=== PATIENT | female | born 1965 | race Caucasian/White ===

== ENCOUNTER 2019-08-25 12:05 | Emergency (ER) | payer OTHER, SELFPAY ==
[2019-08-25 12:13] VITALS: BP 120/78; PULSE 75; RESP 18; TEMP 36.6; O2SAT 100
--- NOTE | 2019-08-25 13:20 | PC.NURSE ---
LET applied to wound, guaze placed over wound and secured with tegaderm. Note immediate saturation of dressing, note squirting from wound. Tight pressure applied to pt's wrist lac. HOMER Cobos made aware. Guaze secured tightly with coban to wound. Pt continues to have CSMT distal to wound.
--- NOTE | 2019-08-25 13:53 | PC.NURSE ---
HOMER Cobos, at bedside to repair laceration
--- NOTE | 2019-08-25 14:00 | ED.WOUNDLAC ---
HPI - Wound/Laceration General Chief Complaint: Wound/Laceration <Alcon Hsu PA-C - Last Filed: 08/25/19 14:14> Stated Complaint: LACERATION <Alcon Hsu PA-C - Last Filed: 08/25/19 14:14> Time Seen by Provider: 08/25/19 12:39 <Alcon Hsu PA-C - Last Filed: 08/25/19 14:14> Source: patient <TERRY Presley Last Filed: 08/25/19 14:14> Mode of arrival: ambulatory <Alcon Hsu PA-C - Last Filed: 08/25/19 14:14> Limitations: no limitations <Alcon Hsu PA-C - Last Filed: 08/25/19 14:14> History of Present Illness HPI narrative: Patient is a 53-year-old female who presents to emergency department for evaluation of laceration to the left breast that occurred just prior 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 patient notes her tetanus to be up-to-date patient notes mild aching pain that becomes moderate with activity and movement patient denies other injuries or complaints <Alcon Hsu PA-C - Last Filed: 08/25/19 14:14> Related Data Home Medications: Home Medications Medication Instructions Recorded Confirmed No Home Medications 08/25/19 08/25/19 <Alcon Hsu PA-C - Last Filed: 08/25/19 14:14> Allergies/Adverse Reactions: Allergies Allergy/AdvReac Type Severity Reaction Status Date / Time cephalexin Allergy Unknown swelling, Verified 08/25/19 12:21 hives Penicillins Allergy Unknown swelling, Verified 08/25/19 12:21 hives <Alcon Hsu PA-C - Last Filed: 08/25/19 14:14> Review of Systems Review of Systems: All systems reviewed & are unremarkable except as noted in HPI and below <Alcon Hsu PA-C - Last Filed: 08/25/19 14:14> [facility] Social History Social History: Social History Gender identity (if verbalized by the patient): Female <TERRY Presley Last Filed: 08/25/19 14:14> Exam Narrative: Exam Narrative: GENERAL: Well-appearing, well-nourished, and in no acute distress. HEAD: Normocephalic, atraumatic. EYES: PERRLA and EOMI. ENT: Nares clear, no rhinorrhea or epistaxis. Mucous membranes moist. EXTREMITIES: Normal range of motion. No edema. 1 cm linear superficial laceration of the volar surface of the left wrist along the radial aspect SKIN: Warm, dry, no rash. NEURO: No focal deficits. Alert and oriented x3. Neurovascularly intact. Capillary refill less than 2 seconds PSYCH: Normal mood and affect. <Alcon Hsu PA-C - Last Filed: 08/25/19 14:14> Course Course Emergency Course: Patient in the room in no distress aware of case findings treatment plan and diagnosis agreeing to follow-up as directed <Alcon Hsu PA-C - Last Filed: 08/25/19 14:14> Vital Signs Vital signs: Vital Signs Temperature 97.8 F 08/25/19 12:13 Pulse Rate 75 08/25/19 12:13 Respiratory Rate 18 08/25/19 12:13 Blood Pressure 120/78 08/25/19 12:13 Pulse Oximetry 100 08/25/19 12:13 Temperature 97.8 F 08/25/19 12:13 Pulse Rate 78 08/25/19 14:25 Respiratory Rate 16 08/25/19 14:25 Blood Pressure 138/75 08/25/19 14:25 Pulse Oximetry 100 08/25/19 14:25 <Alcon Hsu PA-C - Last Filed: 08/25/19 14:14> Vital Signs Temperature 97.8 F 08/25/19 12:13 Pulse Rate 75 08/25/19 12:13 Respiratory Rate 18 08/25/19 12:13 Blood Pressure 120/78 08/25/19 12:13 Pulse Oximetry 100 08/25/19 12:13 Temperature 97.8 F 08/25/19 12:13 Pulse Rate 78 08/25/19 14:25 Respiratory Rate 16 08/25/19 14:25 Blood Pressure 138/75 08/25/19 14:25 Pulse Oximetry 100 08/25/19 14:25 <Jinny Rahman MD - Last Filed: 08/25/19 15:49> Procedures Laceration Laceration 1: Date: 08/25/19 <Alcon Hsu PA-C - Last Filed: 08/25/19 14:14> Time: 14:12 <Alcon Hsu PA-C - Last Filed: 08/25/19 14:14> Site: upper extremity <Le
[2019-08-25 14:25] VITALS: BP 138/75; PULSE 78; RESP 16; O2SAT 100
== END 2019-08-25 14:20 | disposition home or self-care (01) ==
PROVIDERS: Emergency Provider Emergency Medicine
DX: S61.512A Laceration without foreign body of left wrist, initial encounter (principal); W27.0XXA Contact with workbench tool, initial encounter
CPT/HCPCS: 12001; 99282

== ENCOUNTER 2024-06-05 09:12 | Emergency (ER) | payer OTHER, SELFPAY ==
[2024-06-05] VITALS (19 sets, daily range): BP systolic 130–170; BP diastolic 84–104; PULSE 68–102; RESP 14–23; TEMP 36.4; O2SAT 93–100
--- NOTE | ~2024-06-05 | CT_ITS ---
CT head without contrast Indication: Pressure, history of aneurysm Technique: Serial scans were obtained through the brain without the administration of contrast. Dose reduction technique was used on this scan by utilizing automated exposure control and iterative recon struction technique. The dose-length product (DLP) was 605.33 mGy-cm. Findings: Aneurysm clips are present at the left CP angle region. There is no evidence of intracrania l hemorrhage, mass lesion, or acute infarct. The ventricles and subarachnoid spaces are dilated, con sistent with mild atrophy. Low attenuation regions are seen within the periventricular white matter bilaterally, likely representing changes from chronic microvascular ischemic disease. There is no daniel dence of edema, mass effect or midline shift. Occipital craniotomy defect noted left of midline. The visualized paranasal sinuses and mastoid air cells are clear. Impression: No intracranial hemorrhage, mass, or acute infarct. Atrophy and chronic white matter changes, as above. Additional chronic findings, as above. Reviewed, dictated and finalized at location . Impression: No intracranial hemorrhage, mass, or acute infarct. Atrophy and chronic white matter changes, as above. Additional chronic findings, as above.
--- NOTE | 2024-06-05 10:39 | ECG_ITS ---
Test Date: 2024-06-05 10:47:32 Measurements Intervals [place] Rate: 70 P: 34 CA: 152 QRS: 66 QRSD: 90 T: -48 QT: 368 QTc: 399 Interpretive Statements SINUS RHYTHM LEFT VENTRICULAR HYPERTROPHY WITH ST-T CHANGE ANTEROSEPTAL INFARCT, AGE INDETERMINATE BORDERLINE ST-T WAVE ABNORMALITY- INFERIOR LEADS ABNORMAL ECG No previous ECG available for comparison Electronically Signed On 06-05-2024 10:55:49 CDT by Ajit Walton D.O.
[2024-06-05 11:01] LABS: Basophils Percent Auto 0.6 % (0.2-1.2); Eosinophils Percent Auto 0.4 % (0-4.4); Hematocrit 42.7 % (37.0-47.0); Hemoglobin 13.7 g/dL (12.0-15.0); Immature Granulocyte Absolute 0.01 K/mm3 (0.00-0.031); Immature Granulocyte Percent A 0.1 % (0-0.5); Lymphocytes Absolute Auto 2.41 K/mm3 (0.9-3.2); Lymphocytes Percent Auto 34.1 % (18.3-44.2); Mean Corpuscular HGB Conc 32.1 g/dl (32-36); Mean Corpuscular Hemoglobin 31.5 pg (26-34); Mean Corpuscular Volume 98.2 fl (80-100); Monocytes Absolute Auto 0.3 K/mm3 (0.1-0.6); Monocytes Percent Auto 4.5 % (2.6-8.5); Neutrophils Absolute Auto 4.3 K/mm3 (1.3-6.7); Neutrophils Percent Auto 60.3 % (45.5-73.1); Platelet Count Result 232 k/mm3 (150-375); Red Blood Count 4.35 M/mm3 (4.2-5.4); Red Cell Distribution Width 13.4 % (11.5-14.5); White Blood Count 7.1 K/mm3 (4.5-10.0)
[2024-06-05 11:04] LABS: Add Urine Microscopic? YES; Appearance Urine Clear (Clear); Bacteria Urine None Seen /hpf; Bilirubin Urine Negative (Negative); Blood Urine Negative (Negative); Color Urine Yellow (Yellow); Glucose Urine UA Negative (Negative); Ketones Urine Negative (Negative); Leukocyte Esterase Ur Trace LEU/UL (Negative); Nitrate Urine Negative (Negative); Non Pathogenic Casts 0-2; Protein Urine Negative (Negative); RBC Urine 0-2 /hpf (0-2); Specific Grav Ur 1.006 (1.001-1.035); Squamous Epithelial Cell Urine Occasional /hpf (Few); Urobilinogen Urine 0.2 mg/dL (<2.0); WBC Urine 0-5 /hpf (0-3); pH Urine 7.5 (5.0-9.0)
[2024-06-05 11:10] LABS: Alanine Aminotransferase 22 U/L (6-35); Albumin Level 4.4 g/dL (3.5-5.1); Alkaline Phosphatase 68 U/L (38-126); Anion Gap 10 mmol/L (4-12); Aspartate Amino Transferase 24 U/L (14-36); Bilirubin,Total 0.2 mg/dL (0.2-1.3); Blood Urea Nitrogen 10 mg/dL (7-17); Calcium 9.3 mg/dL (8.4-10.2); Carbon Dioxide 24 mmol/L (22-30); Chloride 108 mmol/L (98-107); Estimated CRCL calculation 66 ml/min; Estimated Glomerular Filt Rate > 60; Glucose 91 mg/dL (65-110); Potassium 4.3 mmol/L (3.4-5.0); Sodium 142 mmol/L (137-145)
--- NOTE | 2024-06-05 11:38 | ED_ITS ---
HPI - General Adult General Chief complaint: Neuro Symptoms/Deficit Stated complaint: AMS on Sunday, fatigue, h/a x few days Time Seen by Provider: 06/05/24 11:38 Source: patient Mode of arrival: ambulatory Limitations: no limitations History of Present Illness HPI narrative: 4 YEARS OLD WHITE FEMALE DROVE HERSELF TO THE EMERGENCY ROOM COMPLAINING OF HEAD MEMORY WAS NOT PERFECT AND ACCURATE 4 DAYS AGO DID NOT REMEMBER THAT SHE HAD PHONE CALLS, DID NOT REMEMBER THAT SHE BACK IN A CAR AT THAT DAY. OVER THE LAST 3 DAYS BEEN FEELING SORENESS IN THE BRAIN AND DOES NOT FEEL GOOD. HISTORY OF ANXIETY, DEPRESSION NOT ON ANY MEDICATION, CURRENTLY LIVES WITH HER DAUGHTER WHO THE DO NOT GET ALONE WITH EACH OTHER, LOOKING FOR A JOB. SHE DENIES ANY FEVER, CHILLS, NAUSEA, VOMITING OR FOCAL NEURO DEFICIT. PATIENT IS AWAKE, ALERT ORIENTED X4. Related Data Home Medications ?Medication ?Instructions ?Recorded ?Confirmed ?Last Taken ?Type No Home Medications 08/25/19 08/25/19 Unknown History Allergies Allergy/AdvReac Type Severity Reaction Status Date / Time cephalexin Allergy Unknown swelling, Verified 04/12/21 17:19 hives Penicillins Allergy Unknown swelling, Verified 04/12/21 17:19 hives Review of Systems 2 Review of Systems: All systems reviewed & are unremarkable except as noted in HPI and below PMFSH Social History Social History Gender identity (if verbalized by the patient): Female Exam 2 Narrative: GENERAL APPEARANCE: WELL-DEVELOPED, WELL-NOURISHED SKIN: NORMAL COLOR HEAD: NORMOCEPHALIC, NONTRAUMATIC EYES: CLEAR CONJUNCTIVA ENT: OROPHARYNX NORMAL, EARS NORMAL, NOSE NORMAL NECK: SUPPLE, NONTENDER CHEST AND RESPIRATORY: AIRWAY PATENT, NO RESPIRATORY DISTRESS, NO ACCESSORY MUSCLE USE HEART: REGULAR RATE/RHYTHM ABDOMEN: SOFT, NONTENDER, NO ORGANOMEGALY, QUIET BOWEL SOUNDS VASCULAR: NORMAL PERIPHERAL PULSES, NORMAL CAPILLARY REFILL. MUSCULOSKELETAL: NORMAL RANGE OF MOTION, NONTENDER BACK NEUROLOGIC: ALERT AND ORIENTED ?3, JOURNEYMAN MACHINIST IS NORMAL TESTED, NO GROSS MOTOR DEFICIT Course Consultations Consultation #1: AD OUTPATIENT FOLLOW-UP Date: 06/05/24 Time: 13:30 Vital Signs Vital signs: Vital Signs Temperature 36.4 C 06/05/24 09:14 Pulse Rate 102 H 06/05/24 09:14 Respiratory Rate 17 04/17/25 09:14 Blood Pressure 130/100 H 06/05/24 09:14 Pulse Oximetry 100 06/05/24 09:14 Oxygen Delivery Room Air 06/05/24 09:14 Temperature 36.4 C 06/05/24 09:14 Pulse Rate 69 06/05/24 11:09 Respiratory Rate 18 06/05/24 11:00 Blood Pressure 134/91 H 06/05/24 09:46 Pulse Oximetry 96 06/05/24 11:00 Oxygen Delivery Room Air 06/05/24 09:26 Medical Decision Making MDM Narrative Medical decision making narrative: PATIENT CAME TO THE ED WITH MEMORY TROUBLE STARTED 4 DAYS AGO, CURRENTLY FEELING OKAY EXCEPT FEELING SORENESS IN THE BRAIN. VITAL SIGNS ARE STABLE PHYSICAL EXAMINATION IS UNREMARKABLE DIFFERENTIAL DIAGNOSIS STRESS LIKE SYMPTOMS, TRANSIENT AMNESIA, ELECTROLYTE IMBALANCE, URINARY TRACT INFECTION BLOOD WORKUP TODAY INCLUDES CBC, CMP SHOWED NO ACUTE ABNORMALITY URINALYSIS SHOWED NO ACUTE ABNORMALITY CT HEAD WITHOUT CONTRAST SHOWED NO ACUTE ABNORMALITY EKG ON ARRIVAL TO THE ED SHOWED NORMAL SINUS RHYTHM 70 BEATS PER MINUTE OTHERWISE INSIGNIFICANT DIAGNOSIS ANXIETY LIKE SYMPTOMS VERSUS TRANSIENT GLOBAL AMNESIA, DISCHARGE HOME FOLLOW-UP WITH DR. VALLE OUTPATIENT, DISCUSSED WITH DR. LAGUNA THE PT WAS DISCHARGED TO HOME.THE PT,S CONDITION UPON DISCHARGE WAS FAIR,EDUCATION WAS PROVIDED TO THE PT IN REFERENCE TO THE FINAL IMPRESSION,DISCHARGE STUDY RESULTS,TREATMENT,PROGNOSIS AND NEED FOR FOLLOW UP . Vital Signs Vital Signs: Vital Signs Temperature 36.4 C 06/05/24 09:14 Pulse Rate 102 H 06/05/24 09:14 Respiratory Rate 17 06/05/24 09:14 Blood Pressure 130/100 H 06/05/24 09:14 Pulse Oximetry 100 06/05/24 09:14 Oxygen Delivery Room Air 06/05/24 09:14 Temperature 36.4 C 06/05/24 09:14 Pulse Rate 69 06/05/24 11:09 Respiratory Rate 18 06/05/24 11:00 Blood Pressure 134/91 H 06/05/24 09:46 Pulse Oximetry 96 06/05/24 11:00 Oxygen Delivery Room Air 06/05/24 09:26 Lab Data 06/05/24 10:52 06/05/24 10:52 Labs: Lab Results 06/05/24 Range/Units 10:52 WBC 7.1 (4.5-10.0) K/mm3 RBC 4.35 (4.2-5.4) M/mm3 Hgb 13.7 (12.0-15.0) g/dL Hct 42.7 (37.0-47.0) % MCV 98.2 (80-100) fl MCH 31.5 (26-34) pg MCHC 32.1 (32-36) g/dl RDW 13.4 (11.5-14.5) % Plt Count 232 (150-375) k/mm3 MPV 10.0 (7.4-10.4) fl Immature Gran % (Auto) 0.1 (0-0.5) % Neut % (Auto) 60.3 (45.5-73.1) % Lymph % (Auto) 34.1 (18.3-44.2) % [place] % (Auto) 4.5 (2.6-8.5) % Eos % (Auto) 0.4 (0-4.4) % Baso % (Auto) 0.6 (0.2-1.2) % Lymph # (Auto) 2.41 (0.9-3.2) K/mm3 [place] # (Auto) 0.3 (0.1-0.6) K/mm3 Eos # (Auto) 0.0 (0-0.3) K/mm3 Baso # (Auto) 0.0 (0.0-0.1) K/mm3 Abs Immat Gran (auto) 0.01 (0.00-0.031) K/mm3 Absolute Neuts (auto) 4.3 (1.3-6.7) K/mm3 Absolute Nucleated RBC 0.000 (0.0-0.012) K/mm3 Nucleated RBC % 0.0 (0.0-0.2) % Sodium 142 (137-145) mmol/L Potassium 4.3 (3.4-5.0) mmol/L Chloride 108 H (98-107) mmol/L Carbon Dioxide 24 (22-30) mmol/L Anion Gap 10 (4-12) mmol/L BUN 10 (7-17) mg/dL Creatinine 0.64 L (0.7-1.0) mg/dL Estim Creat Clear Calc 66 ml/min Estimated GFR > 60 (59 - ) Glucose 91 (65-110) mg/dL Calcium 9.3 (8.4-10.2) mg/dL Total Bilirubin 0.2 (0.2-1.3) mg/dL AST 24 (14-36) U/L ALT 22 (6-35) U/L Alkaline Phosphatase 68 (38-126) U/L Total Protein 7.0 (6.3-8.2) g/dL Albumin 4.4 (3.5-5.1) g/dL Urine Color Yellow (Yellow) Urine Appearance Clear (Clear) Urine pH 7.5 (5.0-9.0) Ur Specific [place] 1.006 (1.001-1.035) Urine Protein Negative (Negative) mg/dL Urine Glucose (UA) Negative (Negative) mg/dL Urine Ketones Negative (Negative) mg/dL Ur Blood (Man) Negative (Negative) Urine Nitrate Negative (Negative) Urine Bilirubin Negative (Negative) Urine Urobilinogen 0.2 (<2.0) mg/dL Leukocyte Esterase Rfl Trace H (Negative) TRIPP/UL Urine RBC 0-2 (0-2) /hpf Urine WBC 0-5 (0-3) /hpf Ur Squamous Epith Cells Occasional (Few) /hpf Urine Bacteria None seen /hpf Urine Casts 0-2 Discharge Plan Discharge Clinical Impression: Anxiety-like symptoms, Amnesia/memory disorder Patient Disposition: Home Condition: Stable Instructions: Anxiety (ED), Transient Global Amnesia (ED) Additional Instructions: RETURN IF SYMPTOMS ARE WORSENING , CALL DR DIEGO FOR APPOINTMENT, TAKE TYLENOL NEEDED FOR ACHES AND PAIN, CONTINUE HOME MEDICATIONS. Patient Language: Turkish Prescriptions: No Action No Home Medications Follow-up/Referrals: Giovani Laguna MD [Physician] - 06/06/24 PHYSICIAN,COMMERCIAL MARKETING SPECIALIST [Primary Care Provider] - Quality Stroke Scale Stroke Scale 1: Stroke scale date:: 06/05/24 1a Level of consciousness: alert-0 1b Level of consciousness questions: answers both correctly-0 1c Level of consciousness commands: obeys both correctly-0 2 Best gaze: normal-0 3 Visual: no visual loss-0 4 Facial palsy: normal-0 5a Motor: left arm: no drift-0 5b Motor: right arm: no drift-0 6a Motor: left leg: no drift-0 6b Motor: right leg: no drift-0 7 Limb ataxia: absent-0 8 Sensory: normal-0 9 Best language: no aphasia-0 10 Dysarthria: normal-0 11 Extinction and inattention: no abnormality-0 Level:: 0
== END 2024-06-05 14:03 | disposition home or self-care (01) ==
PROVIDERS: Emergency Provider Emergency Medicine
DX: F41.8 Other specified anxiety disorders (principal); R41.3 Other amnesia
CPT/HCPCS: 36415; 70450; 80053; 81001; 85025; 93005; 99284

== ENCOUNTER 2024-07-01 07:15 | Outpatient (CLI) | payer OTHER, SELFPAY ==
--- NOTE | ~2024-07-01 | CT_ITS ---
CT ANGIOGRAM NECK AND HEAD History: Transient global amnesia. Technique: Axial noncontrast imaging of the brain was performed. Serial spiral axial images through t he head and neck were then obtained during arterial phase IV injection of 100 cc of Omnipaque 350. 3- D postprocessing and MIP images were then reconstructed on the remote workstation. Dose reduction eyad hnique was used on this scan by utilizing automated exposure control and iterative reconstruction eyad hnique. The dose-length product (DLP) was 1382.99 mGy-cm. COMPARISON: 06/05/2024 CTA neck findings: Bilateral vertebral arteries are patent. Probable stent of the distal left verteb ral artery. Bilateral common carotid, internal carotid, and external carotid arteries are patent. No large vessel occlusion or stenosis. Small calcified plaque present at the right carotid bifurcation w ithout stenosis. No aneurysm seen. The proximal right internal carotid artery demonstrates 0% stenosi s relative to the normal distal artery lumen diameter. The proximal left internal carotid artery demo nstrates 0% stenosis relative to the normal distal artery lumen diameter. CTA head findings: Distal vertebral arteries, basilar artery, and posterior cerebral arteries are pat ent. Distal internal carotid arteries, middle cerebral arteries, and anterior cerebral arteries are p atent. No large vessel occlusion or stenosis. No aneurysm seen. There is no acute infarct, intracranial hemorrhage, or mass lesion. Stable hypodensities, compatible with chronic microvascular ischemic change. 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 No mass effect or midline shift. Ventricles and subarachnoid spaces are stable. Stable occipita l craniectomy defect. Paranasal sinuses are clear. Impression: No large vessel occlusion or stenosis. Probable distal left vertebral artery stent. Stable chronic findings in the brain as compared to 06/05/2024. Reviewed, dictated and finalized at location . Impression: No large vessel occlusion or stenosis. Probable distal left vertebral artery stent. Stable chronic findings in the brain as compared to 06/05/2024.
== END 2024-07-01 07:16 | disposition home or self-care (01) ==
LOC: ANHIMG 07:20
PROVIDERS: Visit Provider Psychiatry & Neurology Neurology
DX: G45.4 Transient global amnesia (principal); M21.371 Foot drop, right foot; Z86.79 Personal history of other diseases of the circulatory system
CPT/HCPCS: 70496; 70498; Q9967

== ENCOUNTER 2024-08-28 13:32 | Outpatient (CLI) | payer OTHER, SELFPAY ==
[2024-08-28 17:40] LABS: Vitamin B12 264.0 pg/mL (239-931)
--- NOTE | 2024-08-30 16:13 | P.NEURO_ITS ---
Neurology EEG Report General Information Date of Study: 08/28/24 TEST Electroencephalogram DIAGNOSIS episode of amnesia CONDITION OF RECORDING neurodiagnostic lab EEG NUMBER [id number] CLINICAL HISTORY The patient had an episode of amnesia that lasted for 2-3 hours. EEG DESCRIPTION During wakefulness the background activity consists of posterior dominant alpha rhythm at 9-10 hertz with an amplitude of 30-70 microvolts which appears well- formed and reactive to eye opening. Anteriorly low amplitude mixed activity was seen. There is a good anteroposterior gradient. The background activity appears well-formed and modulated. Hyperventilation was not performed in view of the medical history. Patient progressed to stage I and 2 sleep during which vertex waves sleep spindles and K complexes were seen. However occasional sharp transients were noted over the left mid temporal and mid parietal area. Photic social performed during which no significant abnormal background changes were seen. No appreciable driving response was noted. IMPRESSION This is a mild abnormal EEG due to presence of occasional sharp transients noted over the left temporal parietal area. These are however considered nonspecific focal interictal abnormality and should be clinically correlated.
== END 2024-08-28 13:33 | disposition home or self-care (01) ==
PROVIDERS: Visit Provider Psychiatry & Neurology Neurology
DX: G45.4 Transient global amnesia (principal); M21.371 Foot drop, right foot; Z87.828 Personal history of other (healed) physical injury and trauma; Z86.79 Personal history of other diseases of the circulatory system
CPT/HCPCS: 36415; 82607; 82746; 83090; 95816

== ENCOUNTER 2025-02-17 12:00 | Emergency (ER) | payer OTHER, SELFPAY ==
[2025-02-17 12:12] VITALS: BP 184/88; PULSE 93; RESP 18; TEMP 37.2; O2SAT 99
--- NOTE | 2025-02-17 12:14 | ED_ITS ---
HPI - Female Genitourinary General Chief complaint: Urogenital-Female Stated complaint: UTI Time Seen by Provider: 02/17/25 12:20 Source: patient Mode of arrival: ambulatory Limitations: no limitations History of Present Illness HPI Narrative: Sally is a 59-year-old female patient presenting to the clinic today with complaints of possible UTI. She reports symptoms started 2 nights ago with pressure and her lower abdomen. Rates pain currently an 8/10-constant pressure. Thinks she may have a urinary tract infection. She is also reporting dizziness at this time. Blood pressure was 184/88 and 188/98 on electronic blood pressure, manual blood pressure was 170/90. She denies any nausea vomiting or diarrhea. Has a history of constipation. Last bowel movement was yesterday normal. Denies any chest pain or shortness of breath. History of brain aneurysm with spontaneous hemorrhagic bleed. She does not have history of hypertension and does not take any home medications. Related Data Home Medications ?Medication ?Instructions ?Recorded ?Confirmed ?Last Taken ?Type No Home Medications 08/25/19 02/17/25 U nknown History Allergies Allergy/AdvReac Type Severity Reaction Status Date / Time cephalexin Allergy Unknown swelling, Verified 02/17/25 12:21 hives Penicillins Allergy Unknown swelling, Verified 02/17/25 12:21 hives Review of Systems Review of Systems: Pertinent positives per HPI. Patient denies any fever, chills, rash, headache, visual changes, dizziness, cough, runny nose, sore throat, shortness of breath, chest pain, palpitations, nausea, vomiting, diarrhea, constipation, abdominal pain, or any urinary issues. [facility] Past Medical History Medical History Right foot drop Intracranial hemorrhage, spontaneous intraparenchymal, due to cerebral aneurysm, remote, resolved TGA (transient global amnesia) Brain aneurysm Social History Social History Smoking packs per day: 1 Smoking cigarettes per day: 20.0 Years smoked: 30 Smoking pack-years: 30.00 Smoking status: Current some day smoker Tobacco type: cigarettes Second hand tobacco smoke exposure: No Alcohol intake: never Substance use: never Substance use type: does not use Gender identity (if verbalized by the patient): Female Comments At the time of my signature, I reviewed and agree with the nursing past medical, surgical, social, and family history. There is no relevant family history pertinent to the patient complaint. Exam Narrative: General: Well-developed, well nourished, in no apparent distress Head: Normocephalic, atraumatic Eyes: Pupils equally round and reactive to light bilaterally, EOM intact, sclera and conjunctive clear, no discharge, lids normal Ears: TMs intact and clear, ear canals clear, no drainage, grossly hearing normal. Nose: Nares patent, no discharge, no inflammation, no sinus tenderness. Mouth: Oropharynx without lesions or masses, good dentition, MMM. Tongue midline, even rise and fall of uvula Neck: Supple, trachea midline, no enlargement of anterior or posterior cervical nodes, no thyroid masses or goiter palpable. Cardio: Regular rate and rhythm, s1 and s2 normal, no murmur appreciated. Resp: Clear to auscultation bilaterally anteriorly and posteriorly, no rhonchi, rales, wheezing or rubs Abdomen: Soft, pliable, bowel sounds present in all quadrants, bilateral lower abdomen tender to palpation, no organomegly, no CVAT tenderness. Musculoskeletal: No deformity, non-tender to palpation, grossly normal range of motion, muscle strength strong and equal, peripheral pulse strong, no edema, no cyanosis, normal gait and station Neuro: Alert and oriented x4 with normal speech, no focal deficits, cranial nerves I through XII intact, muscle strength 5 out of 5, sensation intact bilaterally Course Course Level of Care: Express Care Visit Vital Signs Vital signs: Vital Signs Temperature 37.2 C 02/17/25 12:12 Pulse Rate 93 02/17/25 12:12 Respiratory Rate 18 02/17/25 12:12 Blood Pressure 184/88 H 02/17/25 12:12 Pulse Oximetry 99 02/17/25 12:12 Oxygen Delivery Room Air 02/17/25 12:12 Temperature 37.2 C 02/17/25 12:12 Pulse Rate 93 02/17/25 12:12 Respiratory Rate 18 02/17/25 12:12 Blood Pressure 184/88 H 02/17/25 12:12 Pulse Oximetry 99 02/17/25 12:12 Oxygen Delivery Room Air 02/17/25 12:12 [facility] Narrative Medical decision making narrative: At the time of visit patient is resting comfortably on the exam table. Patient appears to be nontoxic. Complaints of possible UTI. She reports symptoms started 2 nights ago with pressure and her lower abdomen. Rates pain currently an 8/10-constant pressure. Thinks she may have a urinary tract infection. She is also reporting dizziness at this time. Blood pressure was 184/88 and 188/98 on electronic blood pressure, manual blood pressure was 170/90. She denies any nausea, vomiting, or diarrhea. Has a history of constipation. Last bowel movement was yesterday normal. Denies any chest pain or shortness of breath. History of brain aneurysm with spontaneous hemorrhagic bleed. She has no history of hypertension and does not take any home medications. Neuro exam is normal in the clinic today. Has tenderness to palpation over the lower abdomen- abdomen is soft, pliable, nondistended, bowel sounds present all 4 quadrants, no CVAT tenderness. Urine dip ordered. Labs: Urine dip shows trace of blood. No sign protein or leukocytes. Plan: I suspect patient has hypertension urgency, dizziness, and lower abdominal pressure. She was found to be hypertensive in the clinic today with blood pressure reading above. History of brain aneurysm with spont bleeding. Recommend transfer to the ED for further evaluation. Patient states she is willing to go to the ED today but does not have time to do it right now as she has another obligation. Dicussed risk of diagnosis and benefits of treatment and she voiced understanding. States again that she will go to the ER later when she has time. AMA form completed, reviewed with the patient, patient voiced understanding, and signed the AMA form. Recommend going to the ED as soon as possible for further evaluation/treatment. Differential Diagnosis Differential Diagnosis: Differential diagnostic considerations for neurologic symptoms include CVA, TIA, venous thromboembolism, hemorrhagic stroke, SAH, seizure, multiple sclerosis, metabolic disturbances considered in this patient presenting with complex neurologic symptoms. Differential diagnostic considerations for acute abdominal pain include surgical abdominal etiology, ischemic bowel, inflammatory bowel disease, gastritis, PUD, gastroenteritis, cardiac etiology, appendicitis, diverticulitis, bowel obstruction, kidney stone, pyelonephritis, abdominal aortic aneurysm, pancreatitis, constipation, endometriosis. Lab Data Labs: Lab Results 02/17/25 Range/Units 12:14 POC Urine Color Yellow POC Urine Clarity Clear POC Urine pH 6.0 POC Ur Specif [place] 1.010 POC Urine Protein Negative (Negative) POC Ur Glucose (UA) Negative (Negative) POC Urine Ketones Negative (Negative) POC Urine Blood Trace (Negative) POC Urine Nitrite Negative (Negative) POC Urine Bilirubin Negative (Negative) POC Urine Urobilinogen 0.2 POC U Leukocyte Esteras Negative (Negative) Discharge Plan Discharge Clinical Impression: Hypertensive urgency, Bilateral lower abdominal pain, Dizziness Patient Disposition: Left Against Medical Advice Condition: Guarded Prognosis Instructions: Abdominal Pain (ED), Hypertensive Crisis (ED), Dizziness (ED) Additional Instructions: Recommend transfer to the emergency room for further evaluation due to elevated blood pressure, dizziness, and lower abdominal pain-history of intracranial hemorrhage You declined transfer to the hospital at this time You are signing out against medical advice Risk: include , disability, worsening of your condition, stroke, heart attack, aneurysm rupture, hemorrhagic bleeding, and organ damage Benefits: include further treatment, definitive diagnosis, better outcomes Go to the emergency room as soon as possible. Patient Language: [place]ian Prescriptions: No Action No Home Medications Follow-up/Referrals: PHYSICIAN NOT ON STAFF,NONSTAFF [Primary Care Provider] Time of Disposition: 12:32 Quality NIHSS Nursing Documentation ED NIHSS nursing documentation: reviewed/agree
[2025-02-17 12:21] LABS: EDUAAPPEAR Clear; EDUABILI Negative (Negative); EDUABLOOD Trace (Negative); EDUACOLOR1 Yellow; EDUAGLUCOSE Negative (Negative); EDUAKETONE Negative (Negative); EDUALEUKO Negative (Negative); EDUANITRATE Negative (Negative); EDUAPH 6.0; EDUAPROTEIN Negative (Negative); EDUASPGRAVITY 1.010; EDUAUROBILI 0.2
[2025-02-17 12:30] VITALS: BP 170/90
== END 2025-02-17 12:35 | disposition left against medical advice (07) ==
PROVIDERS: Emergency Provider Nurse Practitioner Family
DX: I16.0 Hypertensive urgency (principal); R10.31 Right lower quadrant pain; R10.32 Left lower quadrant pain; R42 Dizziness and giddiness; F17.210 Nicotine dependence, cigarettes, uncomplicated; G45.4 Transient global amnesia; Z86.79 Personal history of other diseases of the circulatory system
CPT/HCPCS: 81003; 87086; 99213; G0463

== ENCOUNTER 2025-02-17 13:29 | Emergency (ER) | payer OTHER, SELFPAY ==
[2025-02-17 13:48] VITALS: BP 173/90; PULSE 99; RESP 18; TEMP 36.8; O2SAT 97
--- NOTE | 2025-02-17 14:23 | PC.NURSE ---
pt came to intake desk and stated that she didn't want to be here all day today and that she would come again tomorrow
== END 2025-02-17 14:33 | disposition left against medical advice (07) ==
DX: R10.30 Lower abdominal pain, unspecified (principal)
CPT/HCPCS: 99199; 99283

== ENCOUNTER 2025-02-18 09:52 | Emergency (ER) | payer OTHER, SELFPAY ==
--- NOTE | ~2025-02-18 | CT_ITS ---
EXAMINATION: CT abdomen pelvis w con DATE: 02/18/2025 12:11 INDICATION: Low abdominal pain. Urinary pressure. TECHNIQUE: Computed tomography (CT) of the abdomen and pelvis was performed with 100 mL Omnipaque 350 intravenous contrast. Automated exposure control and iterative reconstruction technique were employed. The dose-length product was 312.75 mGy-cm. COMPARISON: None. FINDINGS: The visualized portions of lung bases demonstrate mild atelectasis. No pleural effusion. The heart size is normal. No pericardial effusion. The liver, gallbladder, spleen, pancreas, and adrenal glands are normal. There is a filter in the inferior vena cava. There is a 15 mm cyst in right kidney. There is a 9 mm mass in right kidney. Left kidney is normal. There are scattered diverticula in the colon. There is fat stranding around a sigmoid diverticulum with wall thickening of the sigmoid colon, consistent with diverticulitis. The appendix is normal. There are no dilated loops of bowel. There are no pathologically enlarged lymph nodes. There is no free intraperitoneal fluid. There is severe lumbar spondylosis. IMPRESSION: 1. Sigmoid diverticulitis. No perforation or abscess. 2. 9 mm right kidney mass, most likely a hemorrhagic cyst. Renal cell carcinoma is not excluded. Abdomen CT or MRI without and with contrast is recommended. Reviewed, dictated and finalized at location E. [facility]
[2025-02-18 09:58] VITALS: BP 147/77; PULSE 101; RESP 18; TEMP 36.5; O2SAT 98
[2025-02-18 10:13] LABS: Add Urine Microscopic? NO; Appearance Urine Clear (Clear); Glucose Urine UA Negative (Negative); Leukocyte Esterase Ur Negative LEU/UL (Negative); Nitrate Urine Negative (Negative); Specific Grav Ur 1.006 (1.001-1.035)
--- NOTE | 2025-02-18 11:20 | ED.ABDPAIN ---
HPI - Abdominal Pain General Chief Complaint: Abdominal Pain Stated Complaint: abd pain Time Seen by Provider: 02/18/25 11:00 Source: patient Mode of arrival: ambulatory Limitations: no limitations History of Present Illness HPI narrative: Patient is a 59-year-old female who presents the ED with report of lower abdominal discomfort. Patient reports having pain for the past 3 days. Described as pressure in her lower abdomen. Reports pressure with urination, urinary frequency. She went to an urgent care yesterday and was told she had microscopic blood in her urine, but did not have a urinary tract infection. She denies seeing any gross hematuria. Denies nausea, vomiting, diarrhea, constipation, fevers. Related Data Allergies Allergy/AdvReac Type Severity Reaction Status Date / Time cephalexin Allergy Unknown swelling, Verified 02/18/25 09:56 hives Penicillins Allergy Unknown swelling, Verified 02/18/25 09:56 hives Review of Systems Review of Systems: All systems reviewed & are unremarkable except as noted in HPI. All systems reviewed & are unremarkable except as noted in HPI and below PMFSH Past Medical History Medical History Right foot drop Intracranial hemorrhage, spontaneous intraparenchymal, due to cerebral aneurysm, remote, resolved TGA (transient global amnesia) Brain aneurysm Social History Social History Smoking packs per day: 1 Smoking cigarettes per day: 20.0 Years smoked: 30 Smoking pack-years: 30.00 Smoking status: Current some day smoker Tobacco type: cigarettes Second hand tobacco smoke exposure: No Alcohol intake: never Substance use: never Substance use type: does not use Gender identity (if verbalized by the patient): Female Exam Narrative: GENERAL: Well appearing, well-nourished, non-toxic, in no acute distress. HEAD: Normocephalic, atraumatic. RESPIRATORY: Airway patent, respirations nonlabored. Clear to auscultation bilaterally, no rales, rhonchi, wheezing. CARDIOVASCULAR: Regular rate and rhythm without murmurs, rubs, or gallops. ABDOMINAL: Soft, mild diffuse tenderness throughout lower abdomen, worst in LLQ, nondistended. Normoactive BS. MUSCULOSKELETAL: Moves all extremities. No gross deformities. SKIN: Warm, dry, normal color. NEURO: A&O X3. Speech clear. Cranial nerves II-XII grossly intact. Steady gait. No ataxic movements. PSYCHIATRIC: Appropriate mood and affect. Normal interaction. Course Vital Signs Vital signs: Vital Signs Temperature 97.7 F 02/18/25 09:58 Pulse Rate 101 H 02/18/25 09:58 Respiratory Rate 18 02/18/25 09:58 Blood Pressure 147/77 H 02/18/25 09:58 Pulse Oximetry 98 02/18/25 09:58 Oxygen Delivery Room Air 02/18/25 09:58 Temperature 97.7 F 02/18/25 09:58 Pulse Rate 78 02/18/25 12:54 Respiratory Rate 16 02/18/25 12:54 Blood Pressure 152/74 H 02/18/25 12:54 Pulse Oximetry 98 02/18/25 12:54 Oxygen Delivery Room Air 02/18/25 09:58 [facility] Narrative Medical decision making narrative: Patient presented to ED with 3 day history of lower abdominal discomfort, pressure with urination. Vital signs stable upon arrival. Patient in no acute distress. Laboratory studies are unremarkable. Minimal leukocytosis of 10.2. CMP unremarkable. Stable electrolytes. Normal LFTs and kidney function. UA is clear. No evidence of infection or blood. CT scan of abdomen/pelvis was obtained and showing evidence of sigmoid diverticulitis. No perforation or abscess. Does also show a right kidney cyst/mass which I made patient aware of. Discussed lab and imaging findings, the for antibiotics. Will start patient on Cipro/Flagyl. Will also prescribe short course of pain medicine. Advised patient have close follow-up with primary care doctor. Discussed diverticulitis diet. Discussed strict return precautions. She is in agreement plan. Feels comfortable going home. Discharged in stable condition. Differential Diagnosis Differential Diagnosis: Colitis, constipation, diverticulitis, UTI, ureterolithiasis, SBO Medical Records I have reviewed the following patient records and this information was taken into consideration when formulating the assessment and plan.: previous labs, previous ER visits, previous hospitalizations and previous clinic visits Lab Data [facility] Lab Attestation statement: I personally reviewed the patient's lab results. 02/18/25 11:21 02/18/25 11:21 Labs: Lab Results 02/18/25 02/18/25 Range/Units 10:03 11:21 WBC 10.2 H (4.5-10.0) K/mm3 RBC 4.47 (4.2-5.4) M/mm3 Hgb 14.4 (12.0-15.0) g/dL Hct 43.8 (37.0-47.0) % MCV 98.0 (80-100) fl MCH 32.2 (26-34) pg MCHC 32.9 (32-36) g/dl RDW 13.6 (11.5-14.5) % Plt Count 270 (150-375) k/mm3 MPV 10.1 (7.4-10.4) fl Immature Gran % (Auto) 0.2 (0-0.5) % Neut % (Auto) 71.7 (45.5-73.1) % Lymph % (Auto) 22.4 (18.3-44.2) % [place] % (Auto) 4.9 (2.6-8.5) % Eos % (Auto) 0.4 (0-4.4) % Baso % (Auto) 0.4 (0.2-1.2) % Lymph # (Auto) 2.28 (0.9-3.2) K/mm3 [place]ran # (Auto) 0.5 (0.1-0.6) K/mm3 Eos # (Auto) 0.0 (0-0.3) K/mm3 Baso # (Auto) 0.0 (0.0-0.1) K/mm3 Abs Immat Gran (auto) 0.02 (0.00-0.031) K/mm3 Absolute Neuts (auto) 7.3 H (1.3-6.7) K/mm3 Absolute Nucleated RBC 0.000 (0.0-0.012) K/mm3 Nucleated RBC % 0.0 (0.0-0.2) % Sodium 141 (137-145) mmol/L Potassium 4.0 (3.4-5.0) mmol/L Chloride 105 (98-107) mmol/L Carbon Dioxide 28 (22-30) mmol/L Anion Gap 8 (4-12) mmol/L BUN 10 (7-17) mg/dL Creatinine 0.63 L (0.7-1.0) mg/dL Estim Creat Clear Calc 69 ml/min Estimated GFR > 60 (59 - ) Glucose 92 (65-110) mg/dL Calcium 9.5 (8.4-10.2) mg/dL Total Bilirubin 0.7 (0.2-1.3) mg/dL AST 27 (14-36) U/L ALT 22 (6-35) U/L Alkaline Phosphatase 82 (38-126) U/L Total Protein 7.8 (6.3-8.2) g/dL Albumin 4.4 (3.5-5.1) g/dL Urine Color Yellow (Yellow) Urine Appearance Clear (Clear) Urine pH 7.0 (5.0-9.0) Ur Specific [place] 1.006 (1.001-1.035) Urine Protein Negative (Negative) mg/dL Urine Glucose (UA) Negative (Negative) mg/dL Urine Ketones Negative (Negative) mg/dL Ur Blood (Man) Negative (Negative) Urine Nitrate Negative (Negative) Urine Bilirubin Negative (Negative) Urine Urobilinogen 0.2 (<2.0) mg/dL Leukocyte Esterase Rfl Negative (Negative) TRIPP/UL Imaging Data Attestation: I personally reviewed and interpreted this imaging study as follows: Radiologist's impression: ITS Impressions Abdomen/Pelvis CT 02/18/25 12:15 IMPRESSION: 1. Sigmoid diverticulitis. No perforation or abscess. 2. 9 mm right kidney mass, most likely a hemorrhagic cyst. Renal cell carcinoma is not excluded. Abdomen CT or MRI without and with contrast is recommended. Discharge Plan Discharge Clinical Impression: Diverticulitis of sigmoid colon, Right kidney mass Patient Disposition: Home Condition: Stable Instructions: Antibiotic Form, Diverticulitis (ED), Diverticulitis Diet (ED) Additional Instructions: Take antibiotics as prescribed for diverticulitis. Recommend low-fiber diet while on antibiotics then gradually increasing fiber intake. Follow-up with your primary care doctor for further evaluation and future colonoscopy. Recommend Tylenol, ibuprofen as needed for pain. Return to the ED if you experience worsening or severe pain, unable to keep down food or drink, rectal bleeding, dark black stools, fevers, or any other symptoms of concern. Your CT imaging did show possible cyst of your right kidney. You will need to follow-up with your primary care doctor for further imaging of this. Patient Language: Citizen Of [place] Prescriptions: New metronidazole 500 mg tablet 500 mg PO Q8H 7 Days Qty: 21 0RF ciprofloxacin HCl 500 mg tablet 500 mg PO Q12H 7 Days Qty: 14 0RF hydrocodone-acetaminophen 5-325 mg tablet 1 tablet PO Q6H PRN (Reason: pain) Qty: 7 0RF Follow-up/Referrals: PHYSICIAN NOT ON STAFF,NONSTAFF [Primary Care Provider] Time of Disposition: 12:28
[2025-02-18 11:29] LABS: Hematocrit 43.8 % (37.0-47.0); Hemoglobin 14.4 g/dL (12.0-15.0); Immature Granulocyte Percent A 0.2 % (0-0.5); Lymphocytes Absolute Auto 2.28 K/mm3 (0.9-3.2); Mean Corpuscular HGB Conc 32.9 g/dl (32-36); Mean Corpuscular Hemoglobin 32.2 pg (26-34); Mean Corpuscular Volume 98.0 fl (80-100); Nucleated Red Blood Cells Absolute Auto 0.000 K/mm3 (0.0-0.012); Nucleated Red Blood Cells Perc 0.0 % (0.0-0.2); Platelet Count Result 270 k/mm3 (150-375); Red Blood Count 4.47 M/mm3 (4.2-5.4); White Blood Count 10.2 K/mm3 (4.5-10.0)
[2025-02-18 11:31] VITALS: BP 127/101; RESP 18; O2SAT 98
[2025-02-18 11:46] VITALS: BP 151/96; RESP 20; O2SAT 98
[2025-02-18 11:49] LABS: Alanine Aminotransferase 22 U/L (6-35); Albumin Level 4.4 g/dL (3.5-5.1); Alkaline Phosphatase 82 U/L (38-126); Anion Gap 8 mmol/L (4-12); Aspartate Amino Transferase 27 U/L (14-36); Bilirubin,Total 0.7 mg/dL (0.2-1.3); Blood Urea Nitrogen 10 mg/dL (7-17); Calcium 9.5 mg/dL (8.4-10.2); Carbon Dioxide 28 mmol/L (22-30); Chloride 105 mmol/L (98-107); Estimated CRCL calculation 69 ml/min; Estimated Glomerular Filt Rate > 60; Glucose 92 mg/dL (65-110); Sodium 141 mmol/L (137-145); Total Protein 7.8 g/dL (6.3-8.2)
[2025-02-18 11:57] LABS: Potassium 4.0 mmol/L (3.4-5.0)
[2025-02-18 12:01] VITALS: BP 151/84; RESP 20; O2SAT 98
[2025-02-18 12:54] VITALS: BP 152/74; PULSE 78; RESP 16; O2SAT 98
== END 2025-02-18 12:55 | disposition home or self-care (01) ==
PROVIDERS: Emergency Medicine; Emergency Provider Physician Assistant
DX: K57.32 Diverticulitis of large intestine without perforation or abscess without bleeding (principal); N28.89 Other specified disorders of kidney and ureter; F17.210 Nicotine dependence, cigarettes, uncomplicated
CPT/HCPCS: 36415; 74177; 80053; 81003; 85025; 99284; Q9967